=== PATIENT | female | born 1985 | race Caucasian/White ===

== ENCOUNTER 2024-02-01 08:59 | Day surgery (SDC) | payer BC ==
[2024-01-27 14:57] LABS: Absolute Basophils 0.1 K/uL (0-0.5); Absolute Eosinophils 0.1 K/uL (0-0.5); Absolute Lymphocytes (CBC) 1.8 K/uL (0.7-4.9); Absolute Monocytes 0.5 K/uL (0.1-1.3); Absolute Neutrophil 5.3 K/uL (1.8-8.0); Basophils % 0.8 % (0-1.3); Eosinophils % 1.2 % (0-4.4); Hematocrit 41.6 % (36.0-45.0); Hemoglobin 13.9 g/dL (12.0-15.0); Lymphocytes % 23.5 % (15.3-44.8); MCHC 33.4 g/dL (32.0-36.0); MCV 89.9 fL (80-100); MPV 8.5 fL (7.6-11.3); Monocytes % 6.9 % (3.3-12.3); Neutrophils % 67.6 % (41.7-73.7); Platelets 286 thou/uL (152-406); RBC Red Blood Cell Count 4.62 M/uL (3.86-4.86); Red Cell Distribution Width 12.6 % (12.1-15.2)
[2024-01-27 15:05] LABS: Anion Gap 4.8 mEq/L (5.0-15.0); Potassium 3.8 mEq/L (3.5-5.1)
[2024-02-01] MEDS ORDERED: FENTANYL CITR 100 MCG/2 ML ONE (09:16)
[2024-02-01] MEDS ORDERED: MIDAZOLAM HCL 2 MG/2 ML INJ ONE (09:16)
[2024-02-01] MEDS ORDERED: LIDOCAINE 1% MPF 5 ML VIAL ONE (09:16)
[2024-02-01] MEDS ORDERED: propofoL 200 MG/20 ML VIAL IV ONE (09:16)
[2024-02-01] MEDS ORDERED: ONDANSETRON 4 MG/2 ML VIAL ONE (09:16)
[2024-02-01] MEDS: Ringers Lactate 1,000 ML IV ONE (09:30)
[2024-02-01] MEDS: CEFAZOLIN SODIUM 1 GM/VIAL ONE (09:38)
[2024-02-01 09:43] LABS: Urine Specific Gravity/Preg >1.030 (1.005-1.030)
[2024-02-01] MEDS ORDERED: KETOROLAC 30 MG/ML INJ ONE (10:22)
[2024-02-01] MEDS ORDERED: GLYCOPYRROLATE 0.2 MG/ML SYR ONE (10:44)
[2024-02-01] MEDS: Mastisol Adhesive Liq ONE (10:53)
--- NOTE | 2024-02-01 11:06 | P.BOP ---
Preoperative diagnosis: tender chest wall mass Postoperative diagnosis: intramuscular mass Primary procedure: Excisional biopsy of tender INTRAMUSCULAR mass 8x7cm Estimated blood loss: <10cc Specimen: mass Findings: intramuscular mass Anesthesia: General Complications: None Transferred to: Recovery Room Condition: Good
[2024-02-01] MEDS: ONDANSETRON 4 MG/2 ML VIAL ONE (11:47)
[2024-02-01 14:03] VITALS: BP 108/75; TEMP 97.3; O2SAT 100
--- NOTE | 2024-02-09 16:26 | OP ---
Date of Procedure: 02/01/2024 Surgeon: Henry Davis MD Preoperative Diagnosis: Tender chest wall mass. Postoperative Diagnosis: Intramuscular chest wall mass. Procedure: Excisional biopsy of tender intramuscular chest wall mass 8 x 7 cm. Estimated Blood Loss: Less than 10 cc. Specimen: Mass. Finding: This is not in the subcu, this went intramuscular and passed underneath the muscle itself. The muscles and fibers have to be splayed to be able to reach the area of the mass. Anesthesia: General plus local. Indication: This is the case of a female, who came to us with a bulging on the chest wall area, diag nosed with a subcutaneous mass. The benefits, alternatives, and risks of excision fully explained, w hich include, but not limited to, infection, bleeding, damage to adjacent structures, anesthesia comp lication, recurrence, [place], and even . She also understands this may not relieve any symptoms. S he might need more than one surgical intervention. She understood, signed a consent. Description Of Procedure: The patient was brought to the operating room, placed in supine position. Anesthesia was induced without complication. The patient was placed in the lateral decubitus positi on with proper protection. A time-out was called. After the area was prepped and draped in sterile fashion, we proceeded to make an incision. Incision was carried down to subcutaneous tissue. What w e noticed that the masses went underneath the muscle. So with the help of the instrument, we proceed ed to carefully open the muscle in the direction of the fibers until we went underneath the muscle an d then we found this fatty tumor. With the help of blunt dissection, we were able to dissect that fa tty tumor until we enucleated that through the muscle fibers. Mass was sent to the pathologist. Are a was irrigated. Hemostasis was obtained. Then the fascia was approximated with the chromic. Then, after that, the subcutaneous tissue closed with 3-0 chromic and the skin was approximated with 4-0 P DS. Hemostasis was obtained before closure and also local anesthesia was applied before closure. Al l irrigation was done too. The patient tolerated the procedure well. Area was covered with sterile dressings and Steri-Strips and patient sent to recovery room in stable condition. YAHIR/IRIS Voice ID: [id number] Report ID: [id number]
--- NOTE | 2024-02-09 16:31 | DS ---
Date of Discharge: 02/01/2024 Diagnosis: Tender chest wall intramuscular mass. Procedure: Excisional biopsy of tender intramuscular mass. Condition: Stable. Disposition: Home. Activity: As tolerated. No heavy lifting. Discharge Instructions: Follow up in my office in 1 week. Call for appointment at [phone]. Keep a mono dry for 48 hours, then may shower. Keep Steri-Strip intact. YAHIR/IRIS Voice ID: [id number] Report ID: [id number]
== END 2024-02-01 12:38 | disposition home or self-care (01) ==
LOC: OR 08:59
PROVIDERS: ATTEND Surgery
PROC: 0JB60ZZ Excision of Chest Subcutaneous Tissue and Fascia, Open Approach (ICD-10-PCS; principal; 2024-02-01 11:15)
DX: D17.1 Benign lipomatous neoplasm of skin and subcutaneous tissue of trunk (principal)
CPT/HCPCS: 85025; 80048; 36415; 81025; 88304; 21554; J2704; J2003; J2250; J3010; J2405 ×2; J7120; J0690